=== PATIENT | female | born 1985 | race African-American/Black ===

== ENCOUNTER 2020-12-05 10:43 | Emergency (ER) | payer BC, OTHER ==
[~2020-12-05] VITALS: Ht 160 cm; Wt 45.4 kg
--- NOTE | 2020-12-05 12:15 | NUR ---
THE PATIENT BIBS FOR C/O CHRONIC BACK PAIN GOT WORSE SINCE YESTERDAY,DENIES ANY TRAUMA. RATES PAIN 10/10. RESPIRATION REGULAR AND UNLABORED. WILL CONTINUE TO MONITOR THE PATIENT.
[2020-12-05] MEDS ORDERED: HYDROCODONE/APAP 5/325MG TABLET PO ONE (13:30)
[2020-12-05] MEDS ORDERED: LORAZEPAM INJ 2 MG/ML VIAL IM ONE (13:30)
[2020-12-05] MEDS ORDERED: HYDROCODONE/APAP 5/325MG TABLET ONE (13:31)
[2020-12-05] MEDS ORDERED: LORAZEPAM INJ 2 MG/ML VIAL ONE (13:32)
[2020-12-05] MEDS ORDERED: IBUP-1955 PO (13:45)
[2020-12-05] MEDS ORDERED: METH4TAB17 PO (13:45)
[2020-12-05] MEDS ORDERED: CYCL5TAB PO (13:45)
[2020-12-05 13:51] VITALS: BP 127/82
--- NOTE | 2020-12-05 13:51 | NUR ---
Patient discharged to home in stable condition. Written and verbal after care instructions given. Patient verbalizes understanding of instruction.
== END 2020-12-05 13:52 | disposition home or self-care (01) ==
LOC: ER 10:50
DX: M54.42 Lumbago with sciatica, left side (principal)
CPT/HCPCS: 96372; 99283; J2060